=== PATIENT | male | born 1950 | race Hispanic/Latino ===

== ENCOUNTER 2021-08-31 10:20 | Day surgery (SDC) | payer MEDICARE ==
[~2021-08-31 10:20] MED LIST: SODIUM CHLORIDE 0.9% IRRIG SOLN 2000 ML IR ONE
[2021-08-31] MEDS ORDERED: LACTATED RINGERS 1,000 ML ONE (11:28)
[2021-08-31 11:41] LABS: Hematocrit 34.8 % (35.5-45.6); Hemoglobin 11.4 gm/dl (11.8-15.2); Mean Corpuscular HGB Conc 33 % (32-34); Mean Corpuscular Volume 86 fl (84-94); Platelet Count 248 K/mm3 (140-440); Red Blood Count 4.07 M/mm3 (3.65-5.03); Red Cell Distribution Width 18.4 % (13.2-15.2)
--- NOTE | 2021-08-31 11:54 | Anesthesia Day of Surgery ---
Anesthesia Day of Surgery - Day of Surgery Patient Examined: Yes Patient H&P Reviewed: Yes Patient is NPO: Yes Beta Blockers: Yes
--- NOTE | 2021-08-31 11:54 | Anesthesia Consultation ---
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
[2021-08-31] MEDS ORDERED: propofoL 200 MG/20 ML VIAL IV ONE (11:57)
[2021-08-31] MEDS ORDERED: HYDROmorphone 1 MG/1 ML INJ ONE (11:57)
[2021-08-31] MEDS ORDERED: LIDOCAINE MPF (2%) 20 MG/1 ML VIAL 5 ML ONE (11:58)
[2021-08-31] MEDS ORDERED: LACTATED RINGERS 1,000 ML IV SCH (12:00)
[2021-08-31] MEDS ORDERED: HYDROmorphone 1 MG/1 ML INJ IV PRN ×2 (12:00)
[2021-08-31] MEDS ORDERED: ONDANSETRON 4 MG/2 ML INJ IV PRN (12:00)
[2021-08-31 12:10] LABS: Alanine Aminotransferase 8 units/L (7-56); Albumin 3.9 g/dL (3.9-5); BUN/Creatinine Ratio 23; Blood Urea Nitrogen 18 mg/dL (9-20); Hemolysis Index 9
[2021-08-31] MEDS ORDERED: SODIUM CHLORIDE 0.9% 1000 ML 1,000 ML ONE ×2 (12:16→14:31)
[2021-08-31] MEDS ORDERED: ceFAZolin/Water 2 GM/20 ML 2 GM/20 ML SYRINGE IV ONE (12:18)
[2021-08-31] MEDS ORDERED: ePHEDrine SULFATE 50 MG/1 ML INJ ONE (12:42)
[2021-08-31] MEDS ORDERED: WATER FOR IRRIG STERILE 1,500 ML BOTTLE IR ONE (12:59)
[2021-08-31] MEDS ORDERED: FAMOTIDINE 20 MG/2 ML INJ IV ONE (13:00)
--- NOTE | 2021-08-31 13:56 | Post Operative Note ---
Date of procedure: 08/31/21 Pre-op diagnosis: cap Post-op diagnosis: same Findings: as above Procedure: cysto cryo ablation prostate Anesthesia: MESHA Surgeon: ELDA HICKEY Estimated blood loss: minimal Pathology: none Condition: stable Disposition: PACU
--- NOTE | 2021-08-31 13:58 | Discharge Summary ---
Short Stay Discharge Plan Activity: other (no straining ) Weight Bearing Status: Full Weight Bearing Diet: low fat, low cholesterol, low salt Wound: open to air, other (ice packs to perineum in rr and x 24 hrs ) Durable Medical Equipment Needed Upon Discharge: other ([facility] ) Follow up with: PRIMARY CARE, [Primary Care Provider] - 7 Days ELDA HICKEY MD [Staff Physician] - 09/05/21
[2021-08-31] MEDS ORDERED: ONDANSETRON 4 MG/2 ML INJ ONE (14:23)
[2021-08-31 16:03] VITALS: BP 143/84
--- NOTE | 2021-08-31 17:24 | Post Anesthesia Evaluation ---
- Post Anesthesia Evaluation Patient Participated: Yes Airway Patent: Yes Stable Respiratory Function: Yes Nausea/Vomiting: No Temp > 96.8F: Yes Pain Manageable: Yes Adequeate Hydration: Yes Anesthesia Complications: No Block Receding Appropriately: Not Applicable Patient on Ventilator: No
--- NOTE | 2021-09-01 02:39 | Operative Report ---
DATE OF SURGERY: 08/31/2021 PREOPERATIVE DIAGNOSIS: Adenocarcinoma, left lobe. POSTOPERATIVE DIAGNOSIS: Adenocarcinoma, left lobe. PROCEDURE: Cryoablation of prostate. SURGEON: Dr. Cuauhtemoc Ge. ANESTHESIA: General. FINDINGS: This is a gentleman, [place] [facility], presents with prostate cancer. Only options were given ____ cryoablation of prostate. Risks and implications discussed. DESCRIPTION OF PROCEDURE: The patient was brought to the operating room and placed on the operating table. Following induction of anesthesia, placed in lithotomy position, prepped and draped in usual sterile fashion. Pickens catheter was easily inserted. Ultrasound showed some stool, which had to be irrigated out. Once this was cleaned, he had an excellent visualization. The gland was slightly mobile. The urethra was a little bit deviated to the left side. The Pickens had to be a little more careful. We measured the prostate, approximately 33 grams. Argyle 1 and 2 were placed without difficulty, then 5 and 6. We placed temperature probes ____ the external sphincter without difficulty. Then, probes 3 and 4. The patient tolerated the procedure well. He had some gas during the first freeze, which cleared. The patient tolerated the procedure well. After the first ____, we had all the gas to the left, and we had excellent visualization, second freeze was carried out. ____ carried out and the probes were removed. It should be noted before we started any free, cystoscopy showed no urethral injury, no bladder injury. An Amplatz wire coiled in the bladder under ultrasound guidance and the warmer was placed and checked throughout the procedure to be sure it was working. The patient tolerated the procedure well. An 18 coude was placed without difficulty. Irrigation was clear and pressure was applied and there was no significant bleeding, brought to recovery in stable condition. TID: [id number] RECEIPT: [id number] EDENILSON/GUNNAR/SYLVESTER
== END 2021-08-31 15:55 | disposition home or self-care (01) ==
LOC: OR 10:20
PROVIDERS: ATTEND Urology
DX: C61 Malignant neoplasm of prostate (principal); E78.00 Pure hypercholesterolemia, unspecified; I10 Essential (primary) hypertension; E66.9 Obesity, unspecified; M19.90 Unspecified osteoarthritis, unspecified site; E11.9 Type 2 diabetes mellitus without complications; F41.9 Anxiety disorder, unspecified; D64.9 Anemia, unspecified; Z98.890 Other specified postprocedural states; Z79.899 Other long term (current) drug therapy; Z79.82 Long term (current) use of aspirin; Z79.4 Long term (current) use of insulin; Z68.34 Body mass index [BMI] 34.0-34.9, adult; Z86.73 Personal history of transient ischemic attack (TIA), and cerebral infarction without residual deficits
CPT/HCPCS: 36415; 55873; 80053; 85027; C2618; J0690; J1170; J2405; J2704; J3490; J7030; J7120; Q0162